=== PATIENT | female | born 1975 | race American Indian/Alaskan Native ===

== ENCOUNTER 2020-08-01 09:54 | Outpatient (CLI) | payer OTHER ==
--- NOTE | 2020-08-01 17:34 | XRay Report ---
CHEST 2 VIEWS INDICATION: PRE OP EXAMINATION. COMPARISON: FINDINGS: Support devices: None. Heart: Within normal limits. Lungs: No acute air space or interstitial disease. Pleura: No significant pleural effusion. No pneumothorax. Additional findings: None. IMPRESSION: 1. No acute findings. Signer Name: Kendell Hdez MD Signed: 08/01/2020 5:29 PM Workstation Name: [id number]
== END 2020-08-01 09:55 | disposition home or self-care (01) ==
LOC: SPVIMAG 09:54 → XRAY 09:54
PROVIDERS: ATTEND Internal Medicine
DX: Z01.818 Encounter for other preprocedural examination (principal)
CPT/HCPCS: 71046